=== PATIENT | female | born 1960 | race Caucasian/White ===

== ENCOUNTER 2023-11-13 21:20 | Emergency (ER) | payer MEDICARE, OTHER ==
--- NOTE | 2023-11-13 21:57 | ED Physician Documentation ---
PD HPI UPPER EXT INJURY - Stated complaint Stated Complaint: LT ARM PX/FALL - History obtained from History obtained from: Patient (Right-handed woman fell while rollerskating just prior to arrival and hit the back of her left wrist with moderate pain. No other injury. Declines pain medication on initial evaluation.) PD PAST MEDICAL HISTORY - Allergies Allergies/Adverse Reactions: Allergies Allergy/AdvReac Type Severity Reaction Status Date / Time No Known Drug Allergies Allergy Verified 11/13/23 21:56 PD ED PE NORMAL - Vitals Vital signs reviewed: Yes - General General: Alert and oriented X 3, No acute distress - Extremities Extremities: Other (Mild tenderness to the distal ulna. No distal radius or snuffbox tenderness. She does have limited range of motion both in flexion extension as well as rotation of the left wrist. Elbow and hand are nontender.) - Neuro Neuro: Alert and oriented X 3 Results - Vitals Vitals: Vital Signs - 24 hr 11/13/23 21:56 Temperature 36.5 C Heart Rate 83 Respiratory 16 Rate Blood Pressure 150/88 H O2 Saturation 100 Oxygen O2 Source Room air Departure - Departure Clinical Impression: Contusion of left wrist Condition: Good Record reviewed to determine appropriate education?: Yes Instructions: ED Contusion Upper Ext Comments: Tylenol and/or ibuprofen as needed for pain. Follow-up with your doctor in a week if not improving, return for new or worsening symptoms.
[2023-11-13 22:04] VITALS: O2SAT 100
[2023-11-14] MEDS ORDERED: HYDROcod/ACETAM 5/325 MG TABLET PO STA (01:01)
--- NOTE | 2023-11-14 01:09 | XRAY Report ---
PROCEDURE: Elbow 3+V LT INDICATIONS: elbow inj TECHNIQUE: 3 views of the elbow were acquired. COMPARISON: None. FINDINGS: Bones: Cortical step-off at the radial head may reflect a nondisplaced fracture. No suspicious bony lesions. Soft tissues: Small joint effusion is present. No suspicious soft tissue calcifications or masses. IMPRESSION: Query nondisplaced radial head fracture. Reviewed by: Jessica Larkin MD on 11/14/2023 1:08 AM PST Approved by: Jessica Larkin MD on 11/14/2023 1:08 AM PST Station ID: [id number]
--- NOTE | 2023-11-14 01:13 | XRAY Report ---
PROCEDURE: Wrist 4 View LT INDICATIONS: wrist inj TECHNIQUE: 3 views of the wrist were acquired. COMPARISON: None. FINDINGS: Bones: No fractures or dislocations. Well-corticated ossific density at the base of the thumb is fa vored to represent chronic deformity, possible sequela of prior trauma. Mild first CMC osteoarthrosis . No suspicious bony lesions. Soft tissues: No suspicious soft tissue calcifications or masses. IMPRESSION: No definite acute radiographic abnormality. Well-corticated ossific density at the base of the thumb appears chronic. Correlate with point tenderness. If pain persists with conservative management recom mend repeat radiograph in 7-10 days. Reviewed by: Jessica Larkin MD on 11/14/2023 1:11 AM PST Approved by: Jessica Larkin MD on 11/14/2023 1:11 AM [facility] Station ID: [id number]
[2023-11-14 01:34] VITALS: BP 145/82
--- NOTE | 2023-11-14 01:50 | ED Physician Documentation ---
ED Addendum - Addendum Addendum: 11/14/23 01:48 Patient 63-year-old female presenting to the emergency department with leftWrist and elbow pain. Initially seen by off going physician, please see their documentation for further detail. Signed out to me with x-rays pending. Patient did report significant discomfort to her nurse and I ordered Vicodin 5-325's for pain control. X-rays reviewed by myself and radiology. I appreciate a fat pad sign concerning for possible occult radial head fracture. Patient reevaluated at bedside. Strong pulses with no indications neurovascular compromise. Significant pain with supination consistent with radial head fracture. Will order for posterior long-arm and splint. Will provide medication for pain control and referral for orthopedics. Clear return precautions given.
[2023-11-14] MEDS ORDERED: HYDROcod/ACET 5/325 Prepack 4 PO STA (01:52)
== END 2023-11-14 02:20 | disposition home or self-care (01) ==
LOC: ED 21:20
DX: S60.212A Contusion of left wrist, initial encounter (principal); W18.30XA Fall on same level, unspecified, initial encounter; Y93.51 Activity, roller skating (inline) and skateboarding
CPT/HCPCS: 73080; 73110; 99283; A9270

== ENCOUNTER 2023-11-19 08:00 | Outpatient (CLI) | payer MEDICARE, OTHER ==
--- NOTE | 2023-11-19 15:32 | XRAY Report ---
PROCEDURE: Elbow 3 View LT INDICATIONS: LEFT ELBOW PAIN TECHNIQUE: 3 views of the elbow were acquired. COMPARISON: None. FINDINGS: Bones: There is a minimally displaced radial head fracture which extends into the joint space. No ot her fracture or dislocation. Degenerative changes are present at the olecranon. Soft tissues: There is elevation of the anterior fat pad consistent with a joint effusion. No suspi cious soft tissue calcifications or masses. IMPRESSION: Minimally displaced radial head fracture and elbow joint effusion. Reviewed by: Nyla Jackson MD on 11/19/2023 3:31 PM [facility] Approved by: Nyla Jackson MD on 11/19/2023 3:31 PM [facility] Station ID: [id number]
== END 2023-11-19 23:59 | disposition home or self-care (01) ==
LOC: DI.WOS 08:00
PROVIDERS: ATTEND Orthopaedic Surgery
DX: S52.122A Displaced fracture of head of left radius, initial encounter for closed fracture (principal); M25.422 Effusion, left elbow